=== PATIENT | female | born 1975 | race Caucasian/White ===

== ENCOUNTER → 2024-12-30 | Outpatient (CLI) | payer MEDICAID, SELFPAY ==
--- NOTE | 2024-12-30 08:08 | CT_ITS ---
EXAM: CT Abdomen and Pelvis Without and With Intravenous Contrast CLINICAL INDICATION: R HYDRONEPHROSIS TECHNIQUE: Axial computed tomography images of the abdomen and pelvis without and with intravenous contrast. This CT exam was performed using one or more of the following dose reduction techniques: automated exposure control, adjustment of the mA and/or kV according to patient size, and/or use of iterative reconstruction technique. COMPARISON: No relevant prior studies available. FINDINGS: LUNG BASES: Unremarkable. No mass. No consolidation. ABDOMEN: LIVER: Hepatomegaly with fatty infiltration. GALLBLADDER AND BILE DUCTS: Unremarkable. No calcified stones. No ductal dilation. PANCREAS: Unremarkable. No mass. No ductal dilation. SPLEEN: Unremarkable. No splenomegaly. ADRENALS: Unremarkable. No mass. KIDNEYS AND URETERS: Right renal pelvic calculi, largest measuring up to 4 mm without obstruction. STOMACH AND BOWEL: Fecal retention in the colon consistent with constipation. No obstruction. No mucosal thickening. PELVIS: APPENDIX: No findings to suggest acute appendicitis. BLADDER: Unremarkable. No mass. No stones. REPRODUCTIVE: Unremarkable as visualized. ABDOMEN and PELVIS: INTRAPERITONEAL SPACE: Unremarkable. No free air. No significant fluid collection. BONES/JOINTS: No acute fracture. No dislocation. SOFT TISSUES: Umbilical hernia containing fat. VASCULATURE: Scattered calcified atherosclerotic disease of aorta. No abdominal aortic aneurysm. LYMPH NODES: Unremarkable. No enlarged lymph nodes. CT/CT Abd/Pelvis W/WO Contrast IMPRESSION: 1. Hepatomegaly with fatty infiltration. 2. Right renal pelvic calculi, largest measuring up to 4 mm without obstructio n. 3. Umbilical hernia containing fat. 4. Fecal retention in the colon consistent with constipation. Reading [facility]
== END | disposition home or self-care (01) ==
LOC: CT 07:44
PROVIDERS: PCP Family Medicine; Referring Provider Urology; Visit Provider Urology
DX: N13.30 Unspecified hydronephrosis (principal)
CPT/HCPCS: 74178; Q9967

== ENCOUNTER 2025-03-15 10:00 | Outpatient (RCR) | payer MEDICAID, SELFPAY ==
[2025-03-08 10:09] VITALS: BP 107/71; PULSE 91; RESP 18; TEMP 36.4; BMI 21.9
--- NOTE | 2025-03-08 11:45 | PCM.WC.HP ---
History of Present Illness Date of Service: 03/08/25 Chief Complaint: Left ischium stage II History of Wound: This is a 49-year-old white female paraplegic who has been to the wound center and to the hospital many times for decubitus ulcers and had many surgeries on her lower back and spine. 2 weeks ago she developed an open area on her left ischium she is leaving for vacation she feels like that is probably why because she has been in her wheelchair more than usual. She has been using Aquacel and hydrogel on it for the last 2 weeks it is very small and superficial but we will take it seriously and start her on new form of treatment and have have her follow-up in a week. There is no sign of infection at this time skin is supple rounded the wound is very clean. [facility] Medical History Right ischial pressure sore, stage 4 Decubitus ulcer of right ischium, stage 3 Hammer toe of left foot AV malformation of spinal cord Paraplegia Home Medications ?Medication ?Instructions ?Recorded ?Last Taken ?Type loratadine 10 mg tablet (Allergy 10 mg PO DAILY 04/20/15 04/22/16 07:00 History Relief (loratadine)) diazepam 5 mg tablet 5 mg PO BID PRN PRN Spasms ##40 04/27/16 Unknown Rx oxybutynin chloride 5 mg tablet 5 mg PO DAILY 05/01/17 Unknown History lisinopril 5 mg tablet (Prinivil) 5 mg PO DAILY 07/29/17 Unknown History Allergy/AdvReac Type Severity Reaction Status Date / Time sulfamethoxazole (From AdvReac Rash Verified 12/05/24 14:22 Bactrim) trimethoprim (From Bactrim) AdvReac Rash Verified 12/05/24 14:22 Social History Smoking Status: Never smoker ROS Constitutional Constitutional: Reports systems reviewed and no addt'l complaints, except as documented Eyes Eyes: Reports systems reviewed and no addt'l complaints, except as documented ENT HEENT: Reports systems reviewed and no addt'l complaints, except as documented Cardiovascular Cardiovascular: Reports systems reviewed and no addt'l complaints, except as documented Respiratory/Chest Respiratory/Chest: Reports systems reviewed and no addt'l complaints, except as documented Gastrointestinal Gastrointestinal: Reports systems reviewed and no addt'l complaints, except as documented Genitourinary Genitourinary: Reports systems reviewed and no addt'l complaints, except as documented Integumentary Integumentary: Reports systems reviewed and no addt'l complaints, except as documented Psychiatric Psychiatric: Reports systems reviewed and no addt'l complaints, except as documented Endocrine Endocrinology: Reports systems reviewed and no addt'l complaints, except as documented Hematologic/Lymphatic Hematologic/Lymphatic: Reports systems reviewed and no addt'l complaints, except as documented Allergic/Immunologic Allergic/Immunologic: Reports systems reviewed and no addt'l complaints, except as documented Vital Signs Vital Signs Vital Signs: 03/08/25 10:09 Temperature 97.5 F L Temperature Source Temporal Pulse Rate 91 Respiratory Rate 18 Blood Pressure 107/71 Blood Pressure Mean 83 Blood Pressure Source Monitor Blood Pressure Position Semi-Fowlers Blood Pressure Location Left Arm Weight Weight: 120 lb Body Mass Index (BMI) 21.9 Physical Exam Const oriented x3 General Appearance: cooperative Exam Limitations: no limitations HEENT normocephalic Head and Scalp: normal to inspection Eyes General Eye: normal appearance of both eyes Neck full ROM General: normal visual inspection Resp normal respiratory effort Effort and Inspection: able to speak in complete sentences Auscultation: clear to auscultation bilaterally Cardio regular rate and regular rhythm Palpation: normal PMI Rate: regular rate Rhythm: regular rhythm GI Palpation: soft and no hepatosplenomegaly Back/Spine Cervical Spine: cervical ROM normal Thoracic Spine / Upper Back: normal to inspection Lumbar Spine / Lower Back: normal to inspection Extremity normal to inspection General Extremity: normal exam except as noted Skin Rashes: no rashes Wound Narrative: Left ischium small superficial stage II opening on her left left crease of her skin. Neuro oriented x3 Psych Appearance: grossly normal Speech: normal speech Thought Content: normal thought content Judgement: judgement good Debridement Note Debridement Note Wound debrided: Left ischium Wound Grade/Stage: Stage II Type of Debridement: Excisional debridement Anesthesia Used: 5% Lidocaine Gel Depth: Down to and including healthy tissue and in the subcutaneous layer Percentage of wound debrided: 100 Instrument Used: 3mm curette Tissue Removed: Fibrin some devitalized tissue Severity: Fat Layer Exposed Amount of bleeding with debridement: Mild Bleeding Controlled with: Compression and gauze Patient tolerated procedure: Patient tolerated procedure well Post-Debridement Measurements and Additional Note: Post-Debridement Measurements/Treatment FLAKITA - Nurse 1 - General Ulcer Assessment Start: 03/08/25 10:09 Freq: Status: Active Protocol: JOSE ANTONIO Activity Type Activity Date Activity User E-sign Co-sign Detail Recorded Client Recorded Date Recorded By Document 03/08/25 10:09 RB [id number] 03/08/25 10:12 RB Edit Result 03/08/25 10:09 RB (1) [id number] 03/08/25 10:17 RB (1) Height => 5 ft 2 in Weight => 120 lb Weight in Pounds => 120.0 lbs Body Mass Index (BMI) => 21.9 BMI Classification => Normal 03/08/25 10:09 WC - Today's Visit Information Type of service Follow-up Visit (Physician/TOOTH CUTTER PINION ) Arrival Mode Ambulatory Transfer Assistance None Patient Identification Verified (Name & Yes ) Patient Requires Transmission-Based No Precautions Height and Weight Height 5 ft 2 in Weight 120 lb Weight in Pounds 120.0 lbs Body Mass Index (BMI) 21.9 BMI Classification Normal Vital Signs Temperature (97.8 F-99.1 F) 97.5 F L Temperature Source Temporal Pulse Rate (60-100) 91 Pulse Location Monitor Respiratory Rate (12-18) 18 Respiratory rate source Observation Blood Pressure (90/60-120/80) 107/71 Blood Pressure Mean 83 Source Monitor Position Semi-Fowlers Blood Pressure Location Left Arm History Since Last Visit- (Skip if this is Patient's initial visit) Have you changed medications since your No last visit? Any new allergies or adverse reactions No Had a fall/change in ADL's that may No increase risk of falls Signs or symptoms of abuse and/or No neglect since last visit Have you been in the hospital since your No last visit? Has dressing in place as prescribed Yes Has compression in place as prescribed N/A Has offloadiing in place as prescribed Yes Experienced any changes in pain level or No management Left Footwear Regular Shoe Right Footwear Regular Shoe Pain Scale: 0-10 Numeric Is Patient Pain Free? Yes FLAKITA - Nurse 1 - General Ulcer Measurement Start: 03/08/25 10:09 Freq: Status: Active Protocol: Activity Type Activity Date Activity User E-sign Co-sign Detail Recorded Client Recorded Date Recorded By Document 03/08/25 10:09 [id number] 03/08/25 10:12 RB 03/08/25 10:09 Wound Center Nurse 1 12. L ishium -Combined with other wound No -Current Size (cm) - Length 0.4 -Current Size (cm) - Width 0.4 -Current Size (cm) - Depth 0.1 -Total Square Cm 0.16 -Photo Taken Yes -Tunneling No -Undermining/Tunneling No -Circular Undermining No -Exudate Amt Medium -Exudate Type Serosanguineous -Wound Margin Distinct, Outline Attached -Granulation Amt Medium (34-66%) -Granulation Quality [place] -Slough/Fibrin Yes -Necrosis Amt Small (1-33%) -Necrotic Tissue Type Adherent Slough -Structure Exposed N/A -Texture (Jeri-wound Skin Appearance) Assessed, Scarring -Moisture (Jrei-wound Skin Appearance) Assessed -Color (Jeri-wound Skin Appearance) Assessed -Temperature (Jeri-wound Skin No Abnormality Appearance) (Pt Warm) -Tenderness on Palpation (Jeri-wound No Skin Appearance) -Ulcer Cleansing Wound Cleanser -Foul Odor after Cleansing No -Anesthetic Used 5% Lidocaine Gel WC - Nurse 2 - General Ulcer CM Notes Start: 03/08/25 10:09 Freq: Status: Active Protocol: Activity Type Activity Date Activity User E-sign Co-sign Detail Recorded Client Recorded Date Recorded By Document 03/08/25 10:24 [facility] [id number] 03/08/25 10:31 [facility] 03/08/25 10:24 Wound Center Nurse 2 -Time 10:25 -Correct Patient Yes -Correct Side, Site, Position Yes -Correct Procedure Yes -Procedure Performed Yes -Type of Procedure Debridement -Clinical Debridement Subcutaneous -Tissue Removed Subcutaneous -Post Debridement (cm) - Length 0.3 -Post Debridement (cm) - Width 0.7 -Post Debridement (cm) - Depth 0.2 -Total Square (Post) (cm) 0.21 -Area of Debridement (cm) - Length 0.3 -Area of Debridement (cm) - Width 0.7 -Total Square (Area) (cm) 0.21 -Tunneling No -Undermining/Tunneling No -Circular Undermining No -Wound/Ulcer Outcome Not Healed -Ulcer Cleansing Rinsed/ Irrigated with Saline -Foul Odor after Cleansing No -Bioengineered Tissue No -Bleeding Controlled with Pressure -Treatment Response Procedure Tolerated Well -Debridement - Subq, 1st 20sq cm Yes Pain Scale: 0-10 Numeric Is Patient Pain Free? Yes - Nurse 3 - General Ulcer D/C NN Start: 03/08/25 10:09 Freq: Status: Active Protocol: Activity Type Activity Date Activity User E-sign Co-sign Detail Recorded Client Recorded Date Recorded By Document 03/08/25 10:48 DL [id number] 03/08/25 10:48 DL 03/08/25 10:48 Wound Care Center Nurse 3 12. L ishium -Ulcer Cleansing Rinsed/ Irrigated with Saline -Foul Odor after Cleansing No -Primary Dressing Applied NonAdherent Contact Layer, Silicone Border Foam 4x4 -Other Dressing xeroform -Silicone Border Foam 4x4 1 Treatment Response Procedure Tolerated Well Pain Scale: 0-10 Numeric Is Patient Pain Free? Yes WC - Visit Discharge Discharge Condition Stable Ambulatory Status Wheelchair Transportation Private Auto Assessment/Plan Assessment/Plan (1) Decubitus ulcer of left ischium, stage 2: CODE(S): L89.322 - Pressure ulcer of left buttock, stage 2 PLAN: Wash buttocks and wound with Hibiclens pat dry, apply Xeroform then Adaptic and a [place] SAP foam dressing. Every day Follow-up in 1 week Patient is given Medhat she said she will start drinking boost but will give her Medhat samples to start drinking. (2) Paraplegia: CODE(S): G82.20 - Paraplegia, unspecified
--- NOTE | 2025-03-09 09:57 | WC ---
PHOTO 03/08/25 LEFT ISCHIUM
[2025-03-15 09:53] VITALS: BP 134/72; PULSE 82; RESP 16; TEMP 36.6; BMI 21.9
--- NOTE | 2025-03-15 11:01 | PN.PCM_ITS ---
History of Present Illness Date of Service: 03/15/25 Chief Complaint: Left ischium stage II History of Wound: This is a 49-year-old white female paraplegic who has been to the wound center and to the hospital many times for decubitus ulcers and had many surgeries on her lower back and spine. 2 weeks ago she developed an open area on her left ischium she is leaving for vacation she feels like that is probably why because she has been in her wheelchair more than usual. She has been using Aquacel and hydrogel on it for the last 2 weeks it is very small and superficial but we will take it seriously and start her on new form of treatment and have have her follow-up in a week. There is no sign of infection at this time skin is supple rounded the wound is very clean. Progress of Wound: Left ischium is healed patient will be discharged from the wound center Subjective Subjective Patient and family are leaving for vacation so they are very happy with outcomes Objective Data Objective Data No sign of infection skin is intact good skin coverage. Patient will be discharged from the wound center and she can follow-up as needed Vital Signs: Vital Signs Temp Pulse Resp BP 97.8 F 82 16 134/72 H 03/15/25 09:53 03/15/25 09:53 03/15/25 09:53 03/15/25 09:53 Weight: 120 lb Body Mass Index (BMI) 21.9 Physical Exam Const oriented x3 General Appearance: cooperative Exam Limitations: no limitations HEENT normocephalic Head and Scalp: normal to inspection Eyes General Eye: normal appearance of both eyes Neck full ROM General: normal visual inspection Resp normal respiratory effort Effort and Inspection: able to speak in complete sentences Auscultation: clear to auscultation bilaterally Cardio regular rate and regular rhythm Palpation: normal PMI Rate: regular rate Rhythm: regular rhythm GI Palpation: soft and no hepatosplenomegaly Back/Spine Cervical Spine: cervical ROM normal Thoracic Spine / Upper Back: normal to inspection Lumbar Spine / Lower Back: normal to inspection Extremity normal to inspection General Extremity: normal exam except as noted Skin Rashes: no rashes Wound Narrative: Left ischium small superficial stage II opening on her left left crease of her skin. Neuro oriented x3 Psych Appearance: grossly normal Speech: normal speech Thought Content: normal thought content Judgement: judgement good Debridement Note Debridement Note No debridement was completed: No debridement was completed today Post-Debridement Measurements and Additional Note: Post-Debridement Measurements/Treatment WC - Nurse 1 - General Ulcer Assessment Start: 03/08/25 10:09 Freq: Status: Active Protocol: JOSE ANTONIO Activity Type Activity Date Activity User E-sign Co-sign Detail Recorded Client Recorded Date Recorded By Document 03/08/25 10:09 RB [id number] 03/08/25 10:12 RB Edit Result 03/08/25 10:09 RB (1) [id number] 03/08/25 10:17 RB Document 03/15/25 09:53 DL [id number] 03/15/25 09:58 DL (1) Height => 5 ft 2 in Weight => 120 lb Weight in Pounds => 120.0 lbs Body Mass Index (BMI) => 21.9 BMI Classification => Normal 03/08/25 03/15/25 10:09 09:53 WC - Today's Visit Information Type of service Follow-up Visit Follow-up Visit (Physician/LINEN CHECKER (Physician/LINEN CHECKER ) ) Arrival Mode Ambulatory Wheelchair Transfer Assistance None Manual Transfer Assist (Other) X1 Patient Identification Verified (Name & Yes Yes ) Patient Requires Transmission-Based No No Precautions Height and Weight Height 5 ft 2 in Weight 120 lb Weight in Pounds 120.0 lbs Body Mass Index (BMI) 21.9 21.9 BMI Classification Normal Normal Vital Signs Temperature (97.8 F-99.1 F) 97.5 F L 97.8 F Temperature Source Temporal Temporal Pulse Rate (60-100) 91 82 Pulse Location Monitor Monitor Respiratory Rate (12-18) 18 16 Respiratory rate source Observation Observation Blood Pressure (90/60-120/80) 107/71 134/72 H Blood Pressure Mean (mm Hg) 83 92 Source Monitor Monitor Position Semi-Fowlers Blood Pressure Location Left Arm History Since Last Visit- (Skip if this is Patient's initial visit) Have you changed medications since your No No last visit? Any new allergies or adverse reactions No No Had a fall/change in ADL's that may No No increase risk of falls Signs or symptoms of abuse and/or No No neglect since last visit Have you been in the hospital since your No No last visit? Has dressing in place as prescribed Yes Yes Has compression in place as prescribed N/A N/A Has offloadiing in place as prescribed Yes Yes Experienced any changes in pain level or No No management Left Footwear Regular Shoe Right Footwear Regular Shoe Pain Scale: 0-10 Numeric Is Patient Pain Free? Yes Yes WC - Nurse 1 - General Ulcer Measurement Start: 03/08/25 10:09 Freq: Status: Active Protocol: Activity Type Activity Date Activity User E-sign Co-sign Detail Recorded Client Recorded Date Recorded By Document 03/08/25 10:09 RB [id number] 03/08/25 10:12 RB Document 03/15/25 09:53 DL [id number] 03/15/25 09:58 DL 03/08/25 03/15/25 10:09 09:53 Wound Center Nurse 1 12. L ishium -Combined with other wound No -Current Size (cm) - Length 0.4 0.1 -Current Size (cm) - Width 0.4 0.1 -Current Size (cm) - Depth 0.1 0.1 -Total Square Cm 0.16 0.01 -Photo Taken Yes -Tunneling No -Undermining/Tunneling No -Circular Undermining No -Exudate Amt Medium None Present -Exudate Type Serosanguineous -Wound Margin Distinct, Flat & Intact Outline Attached -Granulation Amt Medium (34-66%) Small (1-33%) -Granulation Quality [place] -Slough/Fibrin Yes -Necrosis Amt Small (1-33%) None Present (0 %) -Necrotic Tissue Type Adherent Slough -Structure Exposed N/A N/A -Texture (Jeri-wound Skin Appearance) Assessed, Scarring Scarring -Moisture (Jeri-wound Skin Appearance) Assessed No Abnormality -Color (Jeri-wound Skin Appearance) Assessed No Abnormality -Temperature (Jeri-wound Skin No Abnormality No Abnormality Appearance) (Pt Warm) (Pt Warm) -Tenderness on Palpation (Jeri-wound No No Skin Appearance) -Ulcer Cleansing Wound Cleanser Rinsed/ Irrigated with Saline -Foul Odor after Cleansing No No -Anesthetic Used 5% Lidocaine 5% Lidocaine Gel Gel WC - Nurse 2 - General Ulcer CM Notes Start: 03/08/25 10:09 Freq: Status: Active Protocol: Activity Type Activity Date Activity User E-sign Co-sign Detail Recorded Client Recorded Date Recorded By Document 03/08/25 10:24 [facility] [id number] 03/08/25 10:31 [facility] Document 03/15/25 10:21 [facility] [id number] 03/15/25 10:22 [facility] 03/08/25 03/15/25 10:24 10:21 Wound Center Nurse 2 12. L ishium -Time 10:25 10:21 -Correct Patient Yes -Correct Side, Site, Position Yes -Correct Procedure Yes -Procedure Performed Yes No -Type of Procedure Debridement -Clinical Debridement Subcutaneous -Tissue Removed Subcutaneous -Post Debridement (cm) - Length 0.3 0 -Post Debridement (cm) - Width 0.7 0 -Post Debridement (cm) - Depth 0.2 0 -Total Square (Post) (cm) 0.21 0 -Area of Debridement (cm) - Length 0.3 0 -Area of Debridement (cm) - Width 0.7 0 -Total Square (Area) (cm) 0.21 0 -Tunneling No -Undermining/Tunneling No -Circular Undermining No -Wound/Ulcer Outcome Not Healed Healed- Epithelialized -Ulcer Cleansing Rinsed/ Irrigated with Saline -Foul Odor after Cleansing No -Bioengineered Tissue No -Bleeding Controlled with Pressure -Treatment Response Procedure Tolerated Well -Debridement - Subq, 1st 20sq cm Yes Pain Scale: 0-10 Numeric Is Patient Pain Free? Yes Yes - Nurse 3 - General Ulcer D/C NN Start: 03/08/25 10:09 Freq: Status: Active Protocol: Activity Type Activity Date Activity User E-sign Co-sign Detail Recorded Client Recorded Date Recorded By Document 03/08/25 10:48 DL [id number] 03/08/25 10:48 DL Document 03/15/25 10:22 [facility] [id number] 03/15/25 10:22 [facility] 03/08/25 03/15/25 10:48 10:22 Wound Care Center Nurse 3 12. L ishium -Ulcer Cleansing Rinsed/ Irrigated with Saline -Foul Odor after Cleansing No -Primary Dressing Applied NonAdherent Contact Layer, Silicone Border Foam 4x4 -Other Dressing xeroform -Silicone Border Foam 4x4 1 Treatment Response Procedure Tolerated Well Pain Scale: 0-10 Numeric Is Patient Pain Free? Yes Yes - Visit Discharge Discharge Condition Stable Stable Ambulatory Status Wheelchair Wheelchair Transportation Private Auto Private Auto Accompanied by DAUGHTER AND MOM Notes: PT IS HEALED. LOTA Assessment/Plan Assessment/Plan (1) Decubitus ulcer of left ischium, stage 2: CODE(S): L89.322 - Pressure ulcer of left buttock, stage 2 PLAN: Patient will be discharged from the wound center all is healed and patient can follow-up as needed (2) Paraplegia: CODE(S): G82.20 - Paraplegia, unspecified
== END 2025-03-20 23:59 | disposition home or self-care (01) ==
LOC: WC 10:00
PROVIDERS: PCP Family Medicine; Referring Provider Family Medicine; Visit Provider Nurse Practitioner
DX: L89.322 Pressure ulcer of left buttock, stage 2 (principal); G82.20 Paraplegia, unspecified; Z79.899 Other long term (current) drug therapy
CPT/HCPCS: 11042; 99212; 99213; G0463

== ENCOUNTER 2025-04-19 09:45 | Outpatient (RCR) | payer MEDICAID, SELFPAY ==
[2025-04-12 10:07] VITALS: BP 105/78; PULSE 73; RESP 16; TEMP 36.4
--- NOTE | 2025-04-12 21:42 | PCM.WC.PN ---
History of Present Illness Date of Service: 04/12/25 Chief Complaint: R ischium stage II History of Wound: This is a 49-year-old white female paraplegic who has been to the wound center and to the hospital many times for decubitus ulcers and had many surgeries on her lower back and spine. 2 weeks ago she developed an open area on her Right ischium while on vacation . She thinks it came from the Shower edge started to cut her R ischium. She has been using Xeroform and Adapt[employer] on it for the last 2 weeks. There is no sign of infection at this time skin is supple rounded the wound is very clean. Progress of Wound: Will try using Aquacel extra with adaptic over top Subjective Subjective patient approves of plan Objective Data Objective Data no sign of infection small and shallow ulcer R ischium Vital Signs: Vital Signs Temp Pulse Resp BP 97.5 F L 73 16 105/78 04/12/25 10:07 04/12/25 10:07 04/12/25 10:07 04/12/25 10:07 Physical Exam Const oriented x3 General Appearance: cooperative Exam Limitations: no limitations HEENT normocephalic Resp normal respiratory effort Effort and Inspection: able to speak in complete sentences Auscultation: clear to auscultation bilaterally Cardio regular rate and regular rhythm Palpation: normal PMI Rate: regular rate Rhythm: regular rhythm Back/Spine Cervical Spine: cervical ROM normal Thoracic Spine / Upper Back: normal to inspection Lumbar Spine / Lower Back: normal to inspection Skin no rashes or lesions noted Neuro oriented x3 Psych Appearance: grossly normal Speech: normal speech Thought Content: normal thought content Judgement: judgement good Debridement Note Debridement Note Wound debrided: ischiun Laterality: Right Wound Grade/Stage: stage2 Type of Debridement: Excisional debridement Anesthesia Used: 5% Lidocaine Gel Depth: Down to and including healthy tissue and in the subcutaneous layer Percentage of wound debrided: 100 Instrument Used: 5mm curette Tissue Removed: fibrin and slough Severity: Fat Layer Exposed Amount of bleeding with debridement: Mild Bleeding Controlled with: Compression and gauze Patient tolerated procedure: Patient tolerated procedure well Post-Debridement Measurements and Additional Note: Post-Debridement Measurements/Treatment FLAKITA - Nurse 1 - General Ulcer Assessment Start: 04/12/25 10:07 Freq: Status: Active Protocol: JOSE ANTONIO Activity Type Activity Date Activity User E-sign Co-sign Detail Recorded Client Recorded Date Recorded By Document 04/12/25 10:07 PIERRE [id number] 04/12/25 10:13 04/12/25 10:07 - Today's Visit Information Type of service Initial Visit Arrival Mode Wheelchair Transfer Assistance None Patient Identification Verified (Name & Yes ) Patient Requires Transmission-Based No Precautions Vital Signs Temperature (97.8 F-99.1 F) 97.5 F L Temperature Source Temporal Pulse Rate (60-100) 73 Pulse Location Monitor Respiratory Rate (12-18) 16 Respiratory rate source Observation Blood Pressure (90/60-120/80) 105/78 Blood Pressure Mean (mm Hg) 87 Source Monitor Pain Scale: 0-10 Numeric Is Patient Pain Free? Yes - Nurse 1 - General Ulcer Measurement Start: 04/12/25 10:07 Freq: Status: Active Protocol: Activity Type Activity Date Activity User E-sign Co-sign Detail Recorded Client Recorded Date Recorded By Document 04/12/25 10:07 PIERRE [id number] 04/12/25 10:13 04/12/25 10:07 Wound Center Nurse 1 #13 r Ischial -Current Size (cm) - Length 0.4 -Current Size (cm) - Width 0.7 -Current Size (cm) - Depth 0.1 -Total Square Cm 0.28 -Photo Taken Yes -Exudate Amt None Present -Wound Margin Distinct, Outline Attached -Granulation Amt Large (67-100%) -Granulation Quality [place] -Necrosis Amt None Present (0 %) -Structure Exposed N/A -Moisture (Jeri-wound Skin Appearance) No Abnormality -Color (Jeri-wound Skin Appearance) No Abnormality -Temperature (Jeri-wound Skin No Abnormality Appearance) (Pt Warm) -Tenderness on Palpation (Jeri-wound No Skin Appearance) -Foul Odor after Cleansing No -Anesthetic Used 5% Lidocaine Gel - Nurse 2 - General Ulcer CM Notes Start: 04/12/25 10:07 Freq: Status: Active Protocol: Activity Type Activity Date Activity User E-sign Co-sign Detail Recorded Client Recorded Date Recorded By Document 04/12/25 10:37 [facility] [id number] 04/12/25 10:42 [facility] 04/12/25 10:37 Wound Center Nurse 2 -Time 10:38 -Correct Patient Yes -Correct Side, Site, Position Yes -Correct Procedure Yes -Procedure Performed Yes -Type of Procedure Debridement -Clinical Debridement Subcutaneous -Tissue Removed Subcutaneous -Post Debridement (cm) - Length 0.4 -Post Debridement (cm) - Width 0.6 -Post Debridement (cm) - Depth 0.1 -Total Square (Post) (cm) 0.24 -Area of Debridement (cm) - Length 0.4 -Area of Debridement (cm) - Width 0.6 -Total Square (Area) (cm) 0.24 -Tunneling No -Undermining/Tunneling No -Circular Undermining No -Wound/Ulcer Outcome Not Healed -Ulcer Cleansing Rinsed/ Irrigated with Saline -Foul Odor after Cleansing No -Bioengineered Tissue No -Bleeding Controlled with Pressure -Treatment Response Procedure Tolerated Well -Debridement - Subq, 1st 20sq cm Yes Pain Scale: 0-10 Numeric Is Patient Pain Free? Yes - Nurse 3 - General Ulcer D/C NN Start: 04/12/25 10:07 Freq: Status: Active Protocol: Activity Type Activity Date Activity User E-sign Co-sign Detail Recorded Client Recorded Date Recorded By Document 04/12/25 10:48 [facility] [id number] 04/12/25 10:49 [facility] 04/12/25 10:48 Wound Care Center Nurse 3 #13 r Ischial -Ulcer Cleansing Rinsed/ Irrigated with Saline -Foul Odor after Cleansing No -Primary Dressing Applied Fibracol Plus 4x4,Hysept, Silicone Border Foam 4x4 -Other Dressing drsg per mt rn -Fibracol Plus 4x4 1 -Hysept 1 -Silicone Border Foam 4x4 1 Pain Scale: 0-10 Numeric Is Patient Pain Free? Yes - Visit Discharge Discharge Condition Stable Ambulatory Status Wheelchair Transportation Private Auto Accompanied by mom and daughter Assessment/Plan Assessment/Plan (1) Decubitus ulcer of right ischium, stage 2: CODE(S): L89.312 - Pressure ulcer of right buttock, stage 2 PLAN: Wash with antibacterial soap and water. then apply Aquacel extra moisten then adaptic extra sap pad daily (2) Nonhealing nonsurgical wound: CODE(S): T14.8XXA - Other injury of unspecified body region, initial encounter
--- NOTE | 2025-04-13 08:33 | WC ---
PHOTO-LEFT ISCHIUM 04/12/25
[2025-04-19 09:51] VITALS: BP 121/83; PULSE 84; RESP 18; TEMP 36.6
--- NOTE | 2025-04-19 10:26 | PN.PCM_ITS ---
History of Present Illness Date of Service: 04/19/25 Chief Complaint: R ischium stage II History of Wound: This is a 49-year-old white female paraplegic who has been to the wound center and to the hospital many times for decubitus ulcers and had many surgeries on her lower back and spine. 2 weeks ago she developed an open area on her Right ischium while on vacation . She thinks it came from the Shower edge started to cut her R ischium. She has been using Xeroform and [employer] on it for the last 2 weeks. There is no sign of infection at this time skin is supple rounded the wound is very clean. Progress of Wound: The left ischium is resolved and healed patient be discharged from the wound center. She can cover the area with the foam dressing for another week just to protect the new skin. Subjective Subjective Patient is very happy with outcomes Objective Data Objective Data The wound is healed the patient will be discharged from the wound center no sign of infection is well-approximated. Vital Signs: Vital Signs Temp Pulse Resp BP O2 Del Method 98 F 84 18 121/83 H Room Air 04/19/25 09:51 04/19/25 09:51 04/19/25 09:51 04/19/25 09:51 04/19/25 09:51 Oxygen Delivery Method Room Air Physical Exam Const oriented x3 General Appearance: cooperative Exam Limitations: no limitations HEENT normocephalic Resp normal respiratory effort Effort and Inspection: able to speak in complete sentences Auscultation: clear to auscultation bilaterally Cardio regular rate and regular rhythm Palpation: normal PMI Rate: regular rate Rhythm: regular rhythm Back/Spine Cervical Spine: cervical ROM normal Thoracic Spine / Upper Back: normal to inspection Lumbar Spine / Lower Back: normal to inspection Skin no rashes or lesions noted Neuro oriented x3 Psych Appearance: grossly normal Speech: normal speech Thought Content: normal thought content Judgement: judgement good Debridement Note Debridement Note No debridement was completed: No debridement was completed today Post-Debridement Measurements and Additional Note: Post-Debridement Measurements/Treatment FLAKITA - Nurse 1 - General Ulcer Assessment Start: 04/12/25 10:07 Freq: Status: Active Protocol: [email or web address].[email or web address] Activity Type Activity Date Activity User E-sign Co-sign Detail Recorded Client Recorded Date Recorded By Document 04/12/25 10:07 DL [id number] 04/12/25 10:13 DL Document 04/19/25 09:51 MS [id number] 04/19/25 09:58 MS 04/12/25 04/19/25 10:07 09:51 - Today's Visit Information Type of service Initial Visit Follow-up Visit (Physician/STRATEGIC MANAGER ) Arrival Mode Wheelchair Ambulatory Transfer Assistance None Accompanied by family Patient Identification Verified (Name & Yes Yes ) Patient Requires Transmission-Based No Precautions Safety Precautions Fall Prevention Vital Signs Temperature (97.8 F-99.1 F) 97.5 F L 98 F Temperature Source Temporal Temporal Pulse Rate (60-100) 73 84 Pulse Location Monitor Monitor Respiratory Rate (12-18) 16 18 Respiratory rate source Observation Observation Oxygen Delivery Method Room Air Blood Pressure (90/60-120/80) 105/78 121/83 H Blood Pressure Mean (mm Hg) 87 95 Source Monitor Monitor Position Sitting Blood Pressure Location Right Arm History Since Last Visit- (Skip if this is Patient's initial visit) Has dressing in place as prescribed Yes Has compression in place as prescribed Yes Has offloadiing in place as prescribed Yes Experienced any changes in pain level or Yes management Left Footwear Regular Shoe Right Footwear Regular Shoe Pain Scale: 0-10 Numeric Is Patient Pain Free? Yes Yes - Nurse 1 - General Ulcer Measurement Start: 04/12/25 10:07 Freq: Status: Active Protocol: Activity Type Activity Date Activity User E-sign Co-sign Detail Recorded Client Recorded Date Recorded By Document 04/12/25 10:07 DL [id number] 04/12/25 10:13 Document 04/19/25 09:51 MS [id number] 04/19/25 09:58 MS 04/12/25 04/19/25 10:07 09:51 Wound Center Nurse 1 #13 r Ischial -Current Size (cm) - Length 0.4 0.1 -Current Size (cm) - Width 0.7 0.1 -Current Size (cm) - Depth 0.1 0.1 -Total Square Cm 0.28 0.01 -Date of Last Picture (Recall this 04/19/25 field) -Photo Taken Yes Yes -Tunneling No -Undermining/Tunneling No -Circular Undermining No -Exudate Amt None Present Medium -Exudate Type Serosanguineous -Wound Margin Distinct, Flat & Intact Outline Attached -Granulation Amt Large (67-100%) Large (67-100%) -Granulation Quality [place] -Slough/Fibrin No -Necrosis Amt None Present (0 %) -Structure Exposed N/A -Texture (Jeri-wound Skin Appearance) Assessed -Moisture (Jeri-wound Skin Appearance) No Abnormality Assessed -Color (Jeri-wound Skin Appearance) No Abnormality Assessed -Temperature (Jeri-wound Skin No Abnormality No Abnormality Appearance) (Pt Warm) (Pt Warm) -Tenderness on Palpation (Jeri-wound No No Skin Appearance) -Ulcer Cleansing Soap and Water -Foul Odor after Cleansing No No -Anesthetic Used 5% Lidocaine 5% Lidocaine Gel Gel Lower Limb Edema Present NA - Nurse 2 - General Ulcer CM Notes Start: 04/12/25 10:07 Freq: Status: Active Protocol: Activity Type Activity Date Activity User E-sign Co-sign Detail Recorded Client Recorded Date Recorded By Document 04/12/25 10:37 [facility] [id number] 04/12/25 10:42 [facility] Document 04/19/25 10:07 [facility] [id number] 04/19/25 10:09 BM 04/12/25 04/19/25 10:37 10:07 Wound Center Nurse 2 #13 r Ischial -Time 10:38 10:07 -Correct Patient Yes -Correct Side, Site, Position Yes -Correct Procedure Yes -Procedure Performed Yes -Type of Procedure Debridement -Clinical Debridement Subcutaneous -Tissue Removed Subcutaneous -Post Debridement (cm) - Length 0.4 0 -Post Debridement (cm) - Width 0.6 0 -Post Debridement (cm) - Depth 0.1 0 -Total Square (Post) (cm) 0.24 0 -Area of Debridement (cm) - Length 0.4 0 -Area of Debridement (cm) - Width 0.6 0 -Total Square (Area) (cm) 0.24 0 -Tunneling No -Undermining/Tunneling No -Circular Undermining No -Wound/Ulcer Outcome Not Healed Healed- Epithelialized -Ulcer Cleansing Rinsed/ Irrigated with Saline -Foul Odor after Cleansing No -Bioengineered Tissue No -Bleeding Controlled with Pressure NA -Treatment Response Procedure Tolerated Well -Debridement - Subq, 1st 20sq cm Yes Pain Scale: 0-10 Numeric Is Patient Pain Free? Yes Yes - Nurse 3 - General Ulcer D/C NN Start: 04/12/25 10:07 Freq: Status: Active Protocol: Activity Type Activity Date Activity User E-sign Co-sign Detail Recorded Client Recorded Date Recorded By Document 04/12/25 10:48 [facility] [id number] 04/12/25 10:49 [facility] Document 04/19/25 10:10 [facility] [id number] 04/19/25 10:11 [facility] 04/12/25 04/19/25 10:48 10:10 Wound Care Center Nurse 3 #13 r Ischial -Ulcer Cleansing Rinsed/ Irrigated with Saline -Foul Odor after Cleansing No -Primary Dressing Applied Fibracol Plus Silicone Border 4x4,Hysept, Foam 4x4 Silicone Border Foam 4x4 -Other Dressing drsg per mt rn -Fibracol Plus 4x4 1 -Hysept 1 -Silicone Border Foam 4x4 1 1 Pain Scale: 0-10 Numeric Is Patient Pain Free? Yes Yes WC - Visit Discharge Discharge Condition Stable Stable Ambulatory Status Wheelchair Wheelchair Transportation Private Auto Private Auto Accompanied by mom and daughter Assessment/Plan Assessment/Plan (1) Decubitus ulcer of right ischium, stage 2: CODE(S): L89.312 - Pressure ulcer of right buttock, stage 2 PLAN: Area is resolved patient be discharged from the wound center can apply a foam dressing for the next following week and then she is done. Follow-up as needed (2) Nonhealing nonsurgical wound: CODE(S): T14.8XXA - Other injury of unspecified body region, initial encounter
--- NOTE | 2025-04-20 09:48 | WC ---
PHOTO-RIGHT ISCHIAL 04/19/25
== END 2025-04-20 14:54 | disposition home or self-care (01) ==
LOC: WC 09:45
PROVIDERS: PCP Family Medicine; Referring Provider Family Medicine; Visit Provider Nurse Practitioner
DX: L89.312 Pressure ulcer of right buttock, stage 2 (principal); G82.20 Paraplegia, unspecified; Z79.899 Other long term (current) drug therapy
CPT/HCPCS: 11042; 99212; G0463